=== PATIENT | female | born 1975 ===

== ENCOUNTER 2017-11-01 03:51 | Emergency (ER) | payer OTHER ==
[2017-11-01 04:06] VITALS: BMI 21.4
[2017-11-01 04:12] VITALS: TEMP 98.1
--- NOTE | 2017-11-01 05:05 | ED PDOC ---
HPI: Female Pain <Trav Gan - Last Filed: 11/01/17 07:16> History Per: Patient History/Exam Limitations: no limitations Additional Complaint(s): 42 yo F c/o sudden onset of constant crampy pelvic pain associated with dysuria and urgency. Reports that she just finished her menses 3 days ago, concerned for possible retained tampon. Denies any fever, chills, back pain, radiation, N/ V/D, vaginal d/c or bleeding. Reports having an STD 5 years ago, treated with antibiotics, which she contracted from her previous partner. Reports being sexually active with only 1 partner. Patient also concerned about her ovaries and wants an US to be done. <Caitlyn Francisco PA-C - Last Filed: 11/01/17 21:36> Time Seen by Provider: 11/01/17 04:14 Chief Complaint (Nursing): Female Genitourinary Past Medical History Vital Signs: Last Vital Signs Temp 98.1 F 11/01/17 04:06 Pulse 82 11/01/17 04:06 Resp 18 11/01/17 04:06 BP 116/66 11/01/17 04:06 Pulse Ox 98 11/01/17 05:55 <Trav Gan - Last Filed: 11/01/17 07:16> Vital Signs: Last Vital Signs Temp 98.1 F 11/01/17 04:06 Pulse 82 11/01/17 04:06 Resp 18 11/01/17 04:06 BP 116/66 11/01/17 04:06 Pulse Ox 98 11/01/17 04:06 - Medical History PMH: No Chronic Diseases, Sexually Transmitted Disease (Unknown which) - Family History Family History: States: No Known Family Hx <Caitlyn Francisco PA-C - Last Filed: 11/01/17 21:36> - Home Medications Home Medications: Ambulatory Orders Medication Instructions Recorded Doxycycline Hyclate [Doryx] 100 mg PO BID #28 cap 11/01/17 Ibuprofen [Motrin] 600 mg PO TID 7 Days tab 11/01/17 - Allergies Allergies/Adverse Reactions: Allergies Allergy/AdvReac Type Severity Reaction Status Date / Time No Known Allergies Allergy Verified 11/01/17 04:06 Review of Systems Constitutional: Negative for: Fever, Malaise Cardiovascular: Negative for: Chest Pain, Palpitations Respiratory: Negative for: Cough, Shortness of Breath Gastrointestinal: Negative for: Nausea, Vomiting, Abdominal Pain Genitourinary Female: Negative for: Dysuria, Vaginal Discharge, Vaginal Bleeding Skin: Negative for: Rash <Caitlyn Francisco PA-C - Last Filed: 11/01/17 21:36> Physical Exam - Reviewed Vital Signs Reviewed: Yes - Physical Exam Appears: Positive for: Well, Non-toxic, No Acute Distress Head Exam: Positive for: ATRAUMATIC, NORMAL INSPECTION, NORMOCEPHALIC Skin: Positive for: Normal Color, Warm, DRY Eye Exam: Positive for: EOMI, Normal appearance, PERRL ENT: Positive for: Normal ENT Inspection Neck: Positive for: Normal, Painless ROM Cardiovascular/Chest: Positive for: Regular Rate, Rhythm Respiratory: Positive for: CNT, Normal Breath Sounds Gastrointestinal/Abdominal: Positive for: Normal Exam, Soft, Tenderness (to the pelvic area) Pelvic Exam: Positive for: External Exam Normal, Speculum Exam Normal, Tender W/ Cervical Motion, Tender Uterus, Other (GRAPHICS MANAGER was present during the exam). Negative for: Active Bleeding, Blood, Cervicitis, Discharge, Lesions, Mass, Tender Adnexa Back: Positive for: Normal Inspection Extremity: Positive for: Normal ROM Neurologic/Psych: Positive for: Alert, Oriented <Caitlyn Francisco PA-C - Last Filed: 11/01/17 21:36> - ECG O2 Sat by Pulse Oximetry: 98 <Caitlyn Francisco PA-C - Last Filed: 11/01/17 21:36> Medical Decision Making Medical Decision Making: Impression : r/o ectopic, UTI, PID Plan : - UA - cg - pelvic US - GC cx sent cg (-) UA (-) Patient medicated with rocepin 250 mg IM. US still pending at this time. <Caitlyn Francisco PA-C - Last Filed: 11/01/17 21:36> Disposition <Trav Gan - Last Filed: 11/01/17 07:16> Counseled Patient/Family Regarding: Studies Performed, Diagnosis, Need For Followup, Rx Given - Disposition Disposition Time: 06:00 <Caitlyn Francisco PA-C - Last Filed: 11/01/17 21:36> - Clinical Impression Clinical Impression: PID (acute pelvic inflammatory disease), Fibroid - Disposition Referrals: Dinesh Lynne DO [Staff Provider] - 11/03/17 Condition: STABLE Additional Instructions: Return if not better in 3 days. See the obgyn doctor without fail Friday. Call Dr. Lynne's office [phone] Friday. Get an appointment for Friday. Prescriptions: Doxycycline Hyclate [Doryx] 100 mg PO BID #28 cap Ibuprofen [Motrin] 600 mg PO TID 7 Days tab Instructions: Pelvic Inflammatory Disease, Uterine Fibroids (DC) Forms: [employer] (Spanish), [facility] ED School/Work Excuse - PA / CUSTOM BOOKBINDER / Resident Statement ALE has reviewed & agrees with the documentation as recorded. <Caitlyn Francisco PA-C - Last Filed: 11/01/17 21:36> Progress Note - Review of Symptoms Events since last encounter: Time: 0700 Patient is signed out to Dr. Shaikh's care pending ultrasound and reeval. Scribe Attestation: Documented by Eve Julien, acting as a scribe for Trav Gan MD. Provider Scribe Attestation: All medical record entries made by the Scribe were at my direction and personally dictated by me. I have reviewed the chart and agree that the record accurately reflects my personal performance of the history, physical exam, medical decision making, and the department course for this patient. I have also personally directed, reviewed, and agree with the discharge instructions and disposition. <Trav Gan - Last Filed: 11/01/17 07:16>
[2017-11-01 05:29] LABS: SQUAMOUS EPITHIAL 3 /hpf (0-5); URINE BACTERIA RARE (<OCC); URINE BILIRUBIN NEGATIVE (NEGATIVE); URINE BLOOD NEGATIVE (NEGATIVE); URINE CLARITY SLIGHTY-CLOUDY (Clear); URINE COLOR YELLOW (YELLOW); URINE GLUCOSE (UA) NEG (Normal); URINE LEUKOCYTE ESTERASE NEG Leu/uL (Negative); URINE PROTEIN NEGATIVE (NEGATIVE); URINE UROBILINOGEN 0.2-1.0 mg/dL (0.2-1.0)
[2017-11-01] MEDS ORDERED: cefTRIAXone (Rocephin) 250 mg Inj IM STA (06:12)
[2017-11-01] MEDS ORDERED: cefTRIAXone (Rocephin) 250 mg Inj ONE (06:40)
--- NOTE | 2017-11-01 08:03 | ED PDOC ---
- ECG O2 Sat by Pulse Oximetry: 98 - Progress ED Course And Treament: 700: Took over care from Dr. Gan. Fu on imaging. Pt. with possible PID. Stable. AAOx3. US: large fibroid and irregular ovary left. 832: Spoke with Dr. Lynne. Made aware of presentation, findings, and pain still across pelvis. Pain likely from large fibroid. No cyst in ovary so not likely torsion. Pt. to fu with Dr. Lynne Friday. Pt. aaox3. Tolerated po. Disposition - Clinical Impression Clinical Impression: PID (acute pelvic inflammatory disease), Fibroid - POA Present On Arrival: None - Disposition Referrals: Dinesh Lynne DO [Staff Provider] - 11/03/17 Disposition: Routine/Home Disposition Time: 08:35 Condition: STABLE Additional Instructions: Return if not better in 3 days. See the obgyn doctor without fail Friday. Call Dr. Lynne's office [phone] Friday. Get an appointment for Friday afternoon. Prescriptions: Doxycycline Hyclate [Doryx] 100 mg PO BID #28 cap Instructions: Pelvic Inflammatory Disease, Uterine Fibroids (DC) Forms: [employer] (Armenian), [facility] ED School/Work Excuse
--- NOTE | 2017-11-01 08:21 | US ---
HISTORY: pelvic pain, r/o torsion COMPARISON: None available. TECHNIQUE: Transabdominal and transvaginal FINDINGS: UTERUS: Measures 8.6 x 5.1 x 4.8 cm. Two posterior intramural fibroids, 1.5 x 1.8 x 1.8 cm and 1.5 x 1.6 x 1.8 cm. Probable pedunculated left-sided sub serosal uterine fibroid, 7.0 x 8.0 x 8.9 cm. ENDOMETRIUM: Measures 4 mm in diameter. Unremarkable. CERVIX: No cervical abnormality identified. RIGHT OVARY: Measures 2.9 x 2.8 x 2.0 cm. No solid mass. Normal flow. LEFT OVARY: There is rounded mass in the left adnexal region which may represent the left ovary. This measures 3.3 x 2.6 x 3.1 cm. Blood flow is demonstrated on color Doppler interrogation. The appearance is slightly atypical for an ovary. No other mass is identified likely to represent left ovary. FREE FLUID: Complex fluid in cul-de-sac and about the uterus. This may reflect blood or post infectious or post hemorrhagic debris. OTHER FINDINGS: None. IMPRESSION: Probable large pedunculated left-sided uterine fibroid, 8.9 cm. Slightly atypical appearance of left ovary though with blood flow. Do not suspect ovarian torsion. Complex fluid in the pelvis common nonspecific. Cannot rule out hemorrhage or an infectious process. Several small uterine fibroids are noted.
[2017-11-01 08:45] VITALS: BP 104/53; PULSE 73; RESP 15
[2017-11-01 21:36] VITALS: O2SAT 98
== END 2017-11-01 08:43 | disposition home or self-care (01) ==
LOC: H.ER 03:51
DX: N73.9 Female pelvic inflammatory disease, unspecified (principal); D25.9 Leiomyoma of uterus, unspecified; N73.0 Acute parametritis and pelvic cellulitis
CPT/HCPCS: 76830; 81003; 81025; 87086; 87491; 87591; 96372; 99285; J0696; J1885

== ENCOUNTER 2017-11-02 03:18 | Inpatient (IN) | payer OTHER ==
[2017-11-02 03:18] VITALS: BMI 21.4
[2017-11-02] MEDS ORDERED: Sodium Chloride 0.9% 1,000 ML IV STA ×2 (03:50→07:57)
[2017-11-02 04:37] LABS: BASO # 0.1 K/uL (0.0-0.2); BASO % 0.3 % (0.0-2.0); EOS % 0.2 % (0.0-4.0); HEMOGLOBIN 11.8 g/dL (12.0-16.0); LYMPH # 0.8 K/uL (1.0-4.3); LYMPH % 5.5 % (20.0-40.0); MEAN CELL VOLUME 86.5 fl (81.0-99.0); MEAN CORPUSCULAR HEMOGLOBIN 29.6 pg (27.0-31.0); MEAN CORPUSCULAR HGB CONC 34.2 g/dL (33.0-37.0); MEAN PLATELET VOLUME 8.8 fl (7.2-11.7); MONO # 0.9 K/uL (0.0-0.8); MONO % 6.2 % (0.0-10.0); NEUT % 87.8 % (50.0-75.0); PLATELET COUNT 243 K/uL (130-400); RBC 3.99 Mil/uL (3.80-5.20); RED CELL DISTRIBUTION WIDTH 14.4 % (11.5-14.5); WHITE BLOOD COUNT 14.9 K/uL (4.8-10.8)
[2017-11-02 04:43] LABS: INR 1.2 (0.9-1.2); PARTIAL THROMBOPLASTIN TIME 21.8 Seconds (25.6-37.1); PROTHROMBIN TIME 12.9 Seconds (9.8-13.1)
[2017-11-02 04:44] LABS: ALB/GLOB RATIO 1.1 (1.0-2.1); ALBUMIN 3.6 g/dL (3.5-5.0); ALT/SGPT 24 U/L (9-52); AST/SGOT 22 U/L (14-36); BLOOD UREA NITROGEN 12 mg/dl (7-17); CALCIUM 8.9 mg/dL (8.4-10.2); GFR AFRICAN-AMERICAN > 60; GFR NON-AFRICAN AMERICAN > 60; LIPASE 33 U/L (23-300)
--- NOTE | 2017-11-02 04:47 | ED PDOC ---
HPI: Abdomen Time Seen by Provider: 11/02/17 03:26 Chief Complaint (Nursing): Abdominal Pain History Per: Patient History/Exam Limitations: no limitations Additional Complaint(s): 42 yo F returns to the ER c/o continued and worsening pelvic pain, "making it difficult to walk," which she was evaluated in this ER for yesterday and was found to have a fibroid and Dx with PID. States that the pain is intermittent crampy pelvic pain but is increasing in intensity. Denies any fever, chills, back pain, radiation, N/V/D, urinary symptoms, vaginal d/c or bleeding. States since she was d/c, she has been resting and laying at home. Past Medical History Vital Signs: Last Vital Signs Temp 98.8 F 11/02/17 15:15 Pulse 85 11/02/17 15:15 Resp 16 11/02/17 15:30 BP 103/57 L 11/02/17 15:15 Pulse Ox 99 11/02/17 15:30 - Medical History PMH: No Chronic Diseases, Sexually Transmitted Disease (Unknown which) - Family History Family History: States: No Known Family Hx - Home Medications Home Medications: Ambulatory Orders Medication Instructions Recorded Doxycycline Hyclate [Doryx] 100 mg PO BID #28 cap 11/01/17 Ibuprofen [Motrin] 600 mg PO TID 7 Days tab 11/01/17 - Allergies Allergies/Adverse Reactions: Allergies Allergy/AdvReac Type Severity Reaction Status Date / Time No Known Allergies Allergy Verified 11/01/17 04:06 Review of Systems Constitutional: Negative for: Fever, Malaise Cardiovascular: Negative for: Chest Pain, Palpitations Respiratory: Negative for: Cough, Shortness of Breath Gastrointestinal: Positive for: Other (pelvic pain) Genitourinary Female: Negative for: Dysuria, Vaginal Discharge, Vaginal Bleeding Skin: Negative for: Rash Physical Exam - Physical Exam Appears: Positive for: Well, Non-toxic, No Acute Distress Head Exam: Positive for: ATRAUMATIC, NORMAL INSPECTION, NORMOCEPHALIC Skin: Positive for: Normal Color, Warm, DRY Eye Exam: Positive for: EOMI, Normal appearance, PERRL ENT: Positive for: Normal ENT Inspection, Other (mucus membranes moist) Neck: Positive for: Normal, Painless ROM, Supple Cardiovascular/Chest: Positive for: Regular Rate, Rhythm. Negative for: Murmur Respiratory: Positive for: Normal Breath Sounds. Negative for: Rales, Rhonchi, Wheezing Gastrointestinal/Abdominal: Positive for: Normal Exam, Soft, Tenderness (+ tenderness to the lower abdomen), Guarding. Negative for: Mass, Distended Back: Positive for: Normal Inspection. Negative for: L CVA Tenderness, R CVA Tenderness, Vertebral Tenderness Extremity: Positive for: Normal ROM, Capillary Refill (normal). Negative for: Tenderness, Deformity, Swelling Neurologic/Psych: Positive for: Alert, clerical administrator II-XII, Oriented. Negative for: Motor/Sensory Deficits - Laboratory Results Result Diagrams: 11/02/17 04:32 11/02/17 04:32 - ECG O2 Sat by Pulse Oximetry: 99 Medical Decision Making Medical Decision Making: ER visit from yesterday reviewed : working Dx yesterday was PID, she was given rocephin IM and Rx for doxycycline, uhcg (-), UA (-), US : Complex fluid in cul- de-sac and about the uterus. This may reflect blood or post infectious or post hemorrhagic debris. Probable large pedunculated left-sided uterine fibroid, 8.9 cm. Slightly atypical appearance of left ovary though with blood flow. Do not suspect ovarian torsion. Complex fluid in the pelvis common nonspecific. Cannot rule out hemorrhage or an infectious process. Several small uterine fibroids are noted. Considering patient's symptoms, exam and US results from yesterday, will order labs and CT A/P w/ IV contrast. Labs : wbc [address] Patient returned from CT without any incident, pain is controlled at this time. CT results still pending. Disposition - Clinical Impression Clinical Impression: Pelvic pain, Fibroid - Disposition Disposition Time: 06:00 Condition: FAIR
[2017-11-02] MEDS ORDERED: Iohexol 300 100 ML IJ ONE (04:56)
[2017-11-02] MEDS ORDERED: Sodium Chloride 0.9% 50 ML IV ONE (04:56)
[2017-11-02 05:33] LABS: LYMPHOCYTE 4 % (20-50); MONOCYTE 5 % (0-10); NEUTROPHIL 91 % (42-75); TOTAL CELLS COUNTED 100
[2017-11-02 05:34] LABS: ANISOCYTOSIS SLIGHT; PLATELET ESTIMATE NORMAL (NORMAL)
--- NOTE | 2017-11-02 06:28 | CT ---
EXAM: CT Abdomen and Pelvis With Intravenous Contrast EXAM DATE/TIME: 11/02/2017 4:50 AM CLINICAL HISTORY: 42 years old, female; Pain; Abdominal pain; Other: Pelvic pain; Additional info: Pelvic pain, +free fluid seen in us yesterday TECHNIQUE: Axial computed tomography images of the abdomen and pelvis with intravenous contrast. All CT scans at this facility use one or more dose reduction techniques, viz.: automated exposure control; ma/kV adjustment per patient size (including targeted exams where dose is matched to indication; i.e. head); or iterative reconstruction technique. Coronal and sagittal reformatted images were created and reviewed. CONTRAST: 95 mL of omnipaque 300 administered intravenously. COMPARISON: US - TRANSVAGINAL 2017-11-01 06:18 FINDINGS: The liver, spleen, kidneys and pancreas are normal. The gallbladder is dilated. There is free fluid in Rivero's pouch (and between the liver and right kidney). There is a small amount of free fluid in the left upper quadrant. Complex free fluid is present within the pelvis. There is a large round mass in the left adnexa measuring approximately 6.8 x 7.4 cm in axial dimensions the majority of which is composed of homogeneous complex fluid density. The large round homogeneous structure is surrounded by a partially loculated lower attenuation fluid density that may be either surrounding the mass or a component of the mass. Along the posterior aspect of the mass is a round soft tissue structure that appears contiguous with the uterus likely a pedunculated fibroid. The other possibility would be that it represents left ovarian tissue. The uterus is displaced to the right by the left adnexal mass, a finding that suggests it is of ovarian origin rather than of uterine origin. I believe the right ovary is identified on series 3 image 128 based on what appears to be a partially collapsed cyst. There is slight indistinctness of the urinary bladder wall that could be secondary to surrounding fluid or possibly infectious/inflammatory process. The bowel appears normal. No aortic aneurysm. IMPRESSION: Large complex left adnexal mass with surrounding complex fluid as well as fluid extending into the abdomen. My primary concern is for ovarian torsion. The uterus being displaced to the right suggests the mass is of ovarian origin rather than uterine origin. The substantial amount of surrounding complex free fluid is a finding typically associated with ovarian torsion, ectopic , or rupture of a very large cyst. Given a negative test as well as the intactness of the large complex cystic structure, I continue to be concerned about ovarian torsion. If I had been given the CT in isolation, I would recommend pelvic ultrasound however pelvic ultrasound was performed one day prior and the left ovary was not identified and the large size of the mass limited the ability to evaluate for normal ovarian tissue. I believe repeat pelvic ultrasound will simply redemonstrate what was seen on yesterday's ultrasound as well as redemonstrate the findings seen on CT. Thus, I instead recommend emergent OB consultation to exclude ovarian torsion.
--- NOTE | 2017-11-02 07:18 | ED PDOC ---
- Laboratory Results Result Diagrams: 11/02/17 04:32 11/02/17 04:32 Interpretation Of Abn Labs: 14.9 wbc - ECG O2 Sat by Pulse Oximetry: 97 Pulse Ox Interpretation: Normal - Progress ED Course And Treament: 1912: Stable. Took over care from Dr. Gan. Fu on ultrasound. Pt. had CT with possible torsion. OBGYN aware and wants US. Is aware ultrasound was done yesterday. Pain controlled. AAOx3. Ultrasound team comes at 730am. 1932: Spoke with Dr. Booker and advised to see pt. to further evaluate. Made aware of ultrasound from yesterday and CT from today. Pt. tender across pelvis. nuclear technologist coming at 8am. 800: Dr. Booker at bedside. 835: Dr. Booker will take pt. to the OR as pt. remains tender. US not completed as Dr. Booker wants it held because pt. not tolerating it well. He was in the ultrasound room with the pt. and the tech. - Critical Care Total Time (In Min): 60 Documented Critical Care: Time excludes all time spent performint seperately billable procedures Disposition - Clinical Impression Clinical Impression: Pelvic pain, Fibroid - POA Present On Arrival: None - Disposition Disposition: Admitted as In-Patient Disposition Time: 08:37 Condition: FAIR
--- NOTE | 2017-11-02 09:01 | CP.PCM.CON ---
<Lottie Cole - Last Filed: 11/02/17 09:18> History of Present Illness - History of Present Illness History of Present Illness: CC: Pelvic pain HPI: 42 YO female G0 with hx of unknown STI 4 yrs ago presents to ED for worsening pelvic pain. Pt was seen in the ED yesterday and u/s was done suggestive of fibroid, pt was d/c home after pain was better controlled. Pain came back after pt was discharged from hospital. Pain is rated as a 7/10 now after pain medication, prior pain was rated as a 9/10, cramping in nature. Denies any fever, chills, back pain, radiation, N/V/D, urinary symptoms, vaginal d/c or bleeding. States since she was d/c, she has been resting and laying at home. OBhx: G0 GynHx: STI 4 yrs ago, normal PAP. Hx of L benign breast mass, normal periods Qmonthly PMH: denies SurgH: denies FH: denies SH: denies ETOH, smoking and illicit drug use Allergies: NKDA Meds: denies Review of Systems - Constitutional Constitutional: absent: Chills, Fever, Night Sweats - Cardiovascular Cardiovascular: absent: Chest Pain, Diaphoresis, Dyspnea, Palpitations - Respiratory Respiratory: absent: Cough, Dyspnea - Gastrointestinal Gastrointestinal: Abdominal Pain. absent: Constipation, Diarrhea, Nausea, Vomiting - Genitourinary Genitourinary: absent: Difficulty Urinating, Dysuria - Reproductive: Female Reproductive:Female: Pelvic Pain - Menstruation Menstruation: Dysmenorrhea. absent: Abnormal Vaginal Bleeding - Neurological Neurological: absent: Dizziness, Numbness, Headaches Past Patient History - Past Social History Smoking Status: Never Smoked - GENITOURINARY/GYNECOLOGICAL Hx Sexually Transmitted Disorders: Yes (Unknown which) - PSYCHIATRIC Hx Substance Use: No Meds Allergies/Adverse Reactions: Allergies Allergy/AdvReac Type Severity Reaction Status Date / Time No Known Allergies Allergy Verified 11/01/17 04:06 Physical Exam - Constitutional Appears: In Acute Distress - Head Exam Head Exam: ATRAUMATIC, NORMOCEPHALIC - Eye Exam Eye Exam: EOMI, Normal appearance - ENT Exam ENT Exam: Mucous Membranes Moist - Respiratory Exam Respiratory Exam: Clear to Auscultation Bilateral - Cardiovascular Exam Cardiovascular Exam: REGULAR RHYTHM, +S1, +S2 - GI/Abdominal Exam GI & Abdominal Exam: Soft, Tenderness Additional comments: tenderness to palpation throughout the abdomen, pain worse in the pelvis. Neg rebound. - Extremities Exam Extremities exam: Positive for: full ROM, normal inspection - Neurological Exam Neurological exam: Alert, Oriented x3 - Psychiatric Exam Psychiatric exam: Normal Affect, Normal Mood - Skin Skin Exam: Dry, Intact, Normal Color, Warm Results - Vital Signs Recent Vital Signs: Last Vital Signs Temp 98.2 F 11/02/17 07:20 Pulse 68 11/02/17 08:36 Resp 16 11/02/17 08:36 BP 104/52 L 11/02/17 08:36 Pulse Ox 97 11/02/17 08:40 - Labs Result Diagrams: 11/02/17 04:32 11/02/17 04:32 Labs: Laboratory Results - last 24 hr 11/02/17 11/02/17 11/02/17 04:22 04:32 04:32 WBC 14.9 H RBC 3.99 Hgb 11.8 L Hct 34.6 MCV 86.5 MCH 29.6 MCHC 34.2 RDW 14.4 Plt Count 243 MPV 8.8 Neut % (Auto) 87.8 H Lymph % (Auto) 5.5 L [place] % (Auto) 6.2 Eos % (Auto) 0.2 Baso % (Auto) 0.3 Neut # (Auto) 13.0 H Lymph # (Auto) 0.8 L [place] # (Auto) 0.9 H Eos # (Auto) 0.0 Baso # (Auto) 0.1 Neutrophils % (Manual) 91 H Lymphocytes % (Manual) 4 L Monocytes % (Manual) 5 Platelet Estimate Normal Anisocytosis (manual) Slight PT INR APTT Sodium 139 Potassium 4.0 Chloride 102 Carbon Dioxide 27 Anion Gap 14 BUN 12 Creatinine 0.7 Est GFR ( Amer) > 60 Est GFR (Non-Af Amer) > 60 Random Glucose 126 H Calcium 8.9 Total Bilirubin 0.8 AST 22 ALT 24 Alkaline Phosphatase 41 Total Protein 7.0 Albumin 3.6 Globulin 3.3 Albumin/Globulin Ratio 1.1 Lipase 33 Blood Type A POSITIVE Antibody Screen Negative BBK History Checked No verified bt 11/02/17 04:32 WBC RBC Hgb Hct MCV MCH MCHC RDW Plt Count MPV Neut % (Auto) Lymph % (Auto) [place] % (Auto) Eos % (Auto) Baso % (Auto) Neut # (Auto) Lymph # (Auto) [place] # (Auto) Eos # (Auto) Baso # (Auto) Neutrophils % (Manual) Lymphocytes % (Manual) Monocytes % (Manual) Platelet Estimate Anisocytosis (manual) PT 12.9 INR 1.2 APTT 21.8 L Sodium Potassium Chloride Carbon Dioxide Anion Gap BUN Creatinine Est GFR ( Amer) Est GFR (Non-Af Amer) Random Glucose Calcium Total Bilirubin AST ALT Alkaline Phosphatase Total Protein Albumin Globulin Albumin/Globulin Ratio Lipase Blood Type Antibody Screen BBK History Checked - Imaging and Cardiology CT scan - abdomen Additional comment: CT abdomen/pelvis 11/02: IMPRESSION: Large complex left adnexal mass with surrounding complex fluid as well as fluid extending into the abdomen. My primary concern is for ovarian torsion. The uterus being displaced to the right suggests the mass is of ovarian origin rather than uterine origin. The substantial amount of surrounding complex free fluid is a finding typically associated with ovarian torsion, ectopic , or rupture of a very large cyst. US - abdomen Additional comment: Pelvic u/s 11/01: US: large fibroid and irregular ovary left. Assessment & Plan - Assessment and Plan (Free Text) Assessment: 42 YO G0 Female with hx of STI with pelvic pain, large pedunculated left-sided uterine fibroid noted in u/s and CT with large adnexal mass with complex free fluid. Necrotic fibroid vs ovarian torsion vs PID vs ovarian cyst vs other causes cannot be excluded. Pelvic pain with large adnexal vs uterine mass -CT abdomen/pelvis 11/02: Large complex left adnexal mass with surrounding complex fluid with fluid extending into the abdomen. -US 11/01: large pedunculated left-sided uterine fibroid and irregular ovary left. -afebrile with WBC 14.9 -OR for exlap (scope vs open) -abx pre-op -IVF -pain management <Javier Booker - Last Filed: 11/02/17 09:39> History of Present Illness - History of Present Illness History of Present Illness: Addendum: I saw and examined patient. Patient with acute abdomen. Based on results of CT and ultrasound, patient with either pedunculated fibroid necrosing or ovarian cyst or mass with possible torsion. Discussed results with patient and recommended laparoscopy possible laparotomy and removal of pelvic mass. I discussed with patient and all possibilities including removal of fibroid or possible removal of ovary. I discussed with patient the risks, benefits, alternatives of procedure and all patient questions answered. Patient consented for laparoscopy possible laparotomy and removal of pelvic mass. [facility] Results - Vital Signs Recent Vital Signs: Last Vital Signs Temp 98.2 F 11/02/17 07:20 Pulse 68 11/02/17 08:36 Resp 16 11/02/17 08:36 BP 104/52 L 11/02/17 08:36 Pulse Ox 97 11/02/17 09:30 - Labs Result Diagrams: 11/02/17 04:32 11/02/17 04:32 Labs: Laboratory Results - last 24 hr 11/02/17 11/02/17 11/02/17 04:22 04:32 04:32 WBC 14.9 H RBC 3.99 Hgb 11.8 L Hct 34.6 MCV 86.5 MCH 29.6 MCHC 34.2 RDW 14.4 Plt Count 243 MPV 8.8 Neut % (Auto) 87.8 H Lymph % (Auto) 5.5 L [place] % (Auto) 6.2 Eos % (Auto) 0.2 Baso % (Auto) 0.3 Neut # (Auto) 13.0 H Lymph # (Auto) 0.8 L [place] # (Auto) 0.9 H Eos # (Auto) 0.0 Baso # (Auto) 0.1 Neutrophils % (Manual) 91 H Lymphocytes % (Manual) 4 L Monocytes % (Manual) 5 Platelet Estimate Normal Anisocytosis (manual) Slight PT INR APTT Sodium 139 Potassium 4.0 Chloride 102 Carbon Dioxide 27 Anion Gap 14 BUN 12 Creatinine 0.7 Est GFR ( Amer) > 60 Est GFR (Non-Af Amer) > 60 Random Glucose 126 H Calcium 8.9 Total Bilirubin 0.8 AST 22 ALT 24 Alkaline Phosphatase 41 Total Protein 7.0 Albumin 3.6 Globulin 3.3 Albumin/Globulin Ratio 1.1 Lipase 33 Blood Type A POSITIVE Antibody Screen Negative BBK History Checked No verified bt 11/02/17 04:32 WBC RBC Hgb Hct MCV MCH MCHC RDW Plt Count MPV Neut % (Auto) Lymph % (Auto) [place] % (Auto) Eos % (Auto) Baso % (Auto) Neut # (Auto) Lymph # (Auto) [place] # (Auto) Eos # (Auto) Baso # (Auto) Neutrophils % (Manual) Lymphocytes % (Manual) Monocytes % (Manual) Platelet Estimate Anisocytosis (manual) PT 12.9 INR 1.2 APTT 21.8 L Sodium Potassium Chloride Carbon Dioxide Anion Gap BUN Creatinine Est GFR ( Amer) Est GFR (Non-Af Amer) Random Glucose Calcium Total Bilirubin AST ALT Alkaline Phosphatase Total Protein Albumin Globulin Albumin/Globulin Ratio Lipase Blood Type Antibody Screen BBK History Checked
[2017-11-02] MEDS ORDERED: Bupivacaine HCl 0.5% PF (30 ml) Inj ONE ×2 (10:13→10:26)
[2017-11-02] MEDS ORDERED: Propofol 10 mg/ml Inj (20 ML) ONE (10:31)
[2017-11-02] MEDS ORDERED: Ketamine 50 mg/ml Inj (10 ml) ONE (10:31)
[2017-11-02] MEDS ORDERED: Rocuronium 10 mg/ml (5 ml) ONE (10:31)
[2017-11-02] MEDS ORDERED: Succinylcholine 200 mg/10 ml Inj IV ONE (10:31)
[2017-11-02] MEDS ORDERED: Lidocaine 4% (Laryng-O-Jet) Kit MM ONE (10:32)
[2017-11-02] MEDS ORDERED: Phenylephrine 10 mg/ml Inj ONE (10:35)
[2017-11-02] MEDS ORDERED: Midazolam 2 MG/2 ML VIAL ONE (11:25)
[2017-11-02] MEDS ORDERED: Desflurane Inhalation Anesthetic Liq (240 ml) ONE (11:49)
[2017-11-02] MEDS ORDERED: Lactated Ringer's 1,000 ML IV ONE ×2 (12:30)
[2017-11-02] MEDS ORDERED: Trimethobenzamide 200 mg/2 mL Inj IM ONE (13:23)
[2017-11-02] MEDS: Lactated Ringer's 1,000 ML IV SCH (19:22)
--- NOTE | 2017-11-02 19:56 | PCM.SURG1 ---
Surgeon's Initial Post Op Note - Surgeon's Notes Surgeon: Jhony Continuity Tester: Guera Type of Anesthesia: General Endo Pre-Operative Diagnosis: Acute abdomen, pelvic mass Operative Findings: Approximately 9 cm necrotic uterine fibroid pedunculated extending into the left broad ligament. Normal ovaries bilaterally, normal tubes bilaterally. Mild amount pelvic adhesions. Post-Operative Diagnosis: Same plus necrosing uterine fibroid Operation Performed: Laparoscopy, laparotomy, uterine myomectomy. Specimen/Specimens Removed: Uterine fibroid Estimated Blood Loss: EBL {In ML}: 100 Blood Products Given: N/A Drains Used: No Drains Post-Op Condition: Good Date of Surgery/Procedure: 11/02/17 Time of Surgery/Procedure: 11:30
--- NOTE | 2017-11-03 00:31 | OP ---
PROCEDURE DATE: 11/02/2017 PREOPERATIVE DIAGNOSES: Acute abdomen and pelvic mass. POSTOPERATIVE DIAGNOSES: Acute abdomen, pelvic mass, plus necrosing uterine fibroid. OPERATION PERFORMED: Diagnostic laparoscopy, laparotomy, and uterine myomectomy. SURGEON: Javier Booker MD MANAGER NEW PRODUCT: Dinesh Lynne DO. Dr. Lynne was present from the beginning of the procedure through the end of procedure. Dr. Lynne was integral in exposing the surgical field, controlling intraoperative bleeding, and manual removal of uterine fibroid. TYPE OF ANESTHESIA: General. OPERATIVE FINDINGS: Approximately 9 cm necrotic uterine fibroid pedunculated extending into the left broad ligament. Normal ovaries bilaterally, normal tubes bilaterally. Mild amount of pelvic adhesions. IV FLUID INTAKE: 1100 mL of lactated Ringer's. ESTIMATED BLOOD LOSS: 100 mL. URINE OUTPUT: 150 mL of clear urine. SURGICAL SPECIMEN: Uterine fibroid. DESCRIPTION OF PROCEDURE: The patient was taken to the operating room where general anesthesia was found to be adequate. The patient was prepped and draped in normal sterile fashion in the dorsal lithotomy position. A weighted speculum was placed at the posterior aspect of the vagina. A Sparrow retractor was placed at the anterior surface of the vagina. The cervix was grasped with a single-tooth tenaculum at the anterior surface. The cervix was dilated with Toro dilators to a size of 18-Iraqi. The uterine manipulator was placed through the cervix into the uterine cavity. Tenaculum was also removed under direct visualization. All instruments were removed from the vagina. Attention was then turned to the abdomen. Approximately 1 cm incision was placed at the umbilicus. The Veress needle was placed through the umbilical incision into the abdominal cavity. After proper placement confirmed, the abdomen was insufflated with CO2 gas to a pressure of 15 mmHg. Veress needle was removed from the abdominal cavity. A 10-mm trocar was placed through the abdominal incision into the abdominal cavity. The laparoscope was placed through the umbilical port into the abdominal cavity. The abdomen and pelvis were explored and the above findings noted. At this point the operation due to size of the uterine fibroid, decision was made for laparotomy. The laparoscope was removed from the abdominal cavity. A Pfannenstiel skin incision was made with a scalpel. This was carried down through to the underlying layer of fascia. Midline defect was made in the fascial layer. The fascial incision was then extended bilaterally sharply with curved Tubbs scissors. The fascial incision was then from the underlying rectus muscles both bluntly and sharply with curved Tubbs scissors. The peritoneum was then identified, tented upward with Myah clamps x2, and entered sharply with Metzenbaum scissors. This peritoneal incision was then extended superiorly and inferiorly with good visualization of the urinary bladder. The uterus with uterine fibroid was isolated. The uterine fibroid was grasped with a single tooth tenaculum. The fibroid was removed from the uterus bluntly and sharply with electrocautery. The uterine fibroid was found to have a single pedunculated pedicle. The pedicle was grasped with Myah clamps x2, transected, and suture ligated with 0 Vicryl x2. Redundant peritoneal tissue was sharply removed from the edges of the uterus. Reinspection of the uterine surgical site was found to be hemostatic. The abdomen and pelvis were irrigated with copious amounts of warm normal saline. Reinspection of all surgical sites were found to be hemostatic. All instruments were removed from the patient. The peritoneal layer was closed with a running stitch of 2-0 chromic. The rectus muscles were reapproximated at the midline with a running stitch of 2-0 chromic. The fascial layer was closed with a running stitch of 0 Vicryl. The subcutaneous tissue was closed with a running stitch of 3-0 plain. The skin was closed with a subcutaneous stitch of 3-0 Vicryl. The fascial layer at the umbilical port site was closed with a [id number] suture of 0 Vicryl. Subcutaneous tissue was reapproximated at the umbilical port site with a single stitch of 3-0 plain. The skin at the umbilical port site was closed with Dermabond. The patient tolerated the procedure well. All sponge count, lap count, and needle counts were correct x2. The patient was given 1 g of Ancef just prior to the beginning of the procedure. There were no complications. The patient was taken to the recovery room in awake and in stable condition. Javier Booker MD
[2017-11-03] MEDS: Lactated Ringer's 1,000 ML IV SCH ×2 (03:59→12:25)
[2017-11-03 08:55] LABS: BASO % 0.3 % (0.0-2.0); EOS % 0.4 % (0.0-4.0); HEMOGLOBIN 9.7 g/dL (12.0-16.0); LYMPH # 1.3 K/uL (1.0-4.3); LYMPH % 11.9 % (20.0-40.0); MEAN CELL VOLUME 87.9 fl (81.0-99.0); MEAN CORPUSCULAR HEMOGLOBIN 29.8 pg (27.0-31.0); MEAN CORPUSCULAR HGB CONC 33.9 g/dL (33.0-37.0); MEAN PLATELET VOLUME 9.6 fl (7.2-11.7); MONO # 0.8 K/uL (0.0-0.8); MONO % 7.3 % (0.0-10.0); NEUT % 80.1 % (50.0-75.0); RBC 3.25 Mil/uL (3.80-5.20); RED CELL DISTRIBUTION WIDTH 14.7 % (11.5-14.5); WHITE BLOOD COUNT 11.3 K/uL (4.8-10.8)
--- NOTE | 2017-11-03 09:45 | CP.PCM.PN ---
Subjective - Date & Time of Evaluation Date of Evaluation: 11/03/17 Time of Evaluation: 09:41 - Subjective Subjective: 42 yo s/p laparotomy for degenerating fibroid POD #1, doing well. Denies fever, SOB, no N/V, minimal ambulation, +smallwood draining adequate urine, abdominal pain tolerable with meds, NPO, no vaginal bleeding Objective - Vital Signs/Intake and Output Vital Signs (last 24 hours): Temp Pulse Resp BP Pulse Ox 99.6 F 76 18 105/61 100 11/03/17 08:20 11/03/17 08:20 11/03/17 08:20 11/03/17 08:20 11/03/17 08:20 Intake and Output: 11/03/17 11/03/17 06:59 18:59 Intake Total 600 1900 Output Total 300 500 Balance 300 1400 - Medications Medications: Current Medications Acetaminophen (Ofirmev) 100 mls @ 400 mls/hr IVPB Q6H ABDIAS PRN Reason: Protocol Stop: 11/03/17 10:16 Last Admin: 11/03/17 03:54 Dose: 400 mls/hr Lactated Ringer's (Lactated Ringer's) 1,000 mls @ 100 mls/hr IV .Q10H ABDIAS Last Admin: 11/03/17 03:59 Dose: 100 mls/hr - Labs Labs: 11/03/17 07:55 11/02/17 04:32 PT 12.9 Seconds (9.8-13.1) 11/02/17 04:32 INR 1.2 (0.9-1.2) 11/02/17 04:32 APTT 21.8 Seconds (25.6-37.1) L 11/02/17 04:32 - Head Exam Head Exam: ATRAUMATIC - Eye Exam Pupil Exam: NORMAL ACCOMODATION - Respiratory Exam Respiratory Exam: NORMAL BREATHING PATTERN - Cardiovascular Exam Cardiovascular Exam: REGULAR RHYTHM - GI/Abdominal Exam Additional comments: incision clean/dry/intact +BS, no rebound, abdominal pain tolerable with meds, no gaurding, - Exam External exam: NORMAL EXTERNAL EXAM Bimanual exam: NORMAL BIMANUAL EXAM - Extremities Exam Extremities Exam: Normal Inspection - Skin Skin Exam: Dry, Normal Color Assessment and Plan - Assessment and Plan (Free Text) Plan: A/P POD #1 s/p laparotomy for degenerating fibroid 1. Discontinue WEB DESIGNER DEVELOPER, smallowod 2. Patient to start PO pain medication - Percocet/Motrin/Colace/Mylicon 3. Advance diet as tolerated 4. Encourage patient to ambulate 5. Patient otherwise recovering well, possible discharge tomorrow
[2017-11-03] MEDS: Oxycodone/Acetaminophen 5/325 mg Tab PO PRN ×3 (14:40→23:36)
[2017-11-04] MEDS: Oxycodone/Acetaminophen 5/325 mg Tab PO PRN ×2 (04:51→11:01)
[2017-11-04] MEDS: Simethicone 80 mg Chewtab PO PRN ×2 (05:07→22:09)
--- NOTE | 2017-11-04 11:25 | CARD ---
APPROVED REPORT EKG Measurement Heart [id number] <Conclusion> Normal sinus rhythm Normal ECG
[2017-11-04] MEDS ORDERED: Docusate-Senna 50 mg-8.6 mg Tab PO SCH (22:00)
[2017-11-05] MEDS: Oxycodone/Acetaminophen 5/325 mg Tab PO PRN ×2 (02:53→19:03)
--- NOTE | 2017-11-05 06:57 | CP.PCM.PN ---
Subjective - Date & Time of Evaluation Date of Evaluation: 11/04/17 Time of Evaluation: 22:00 - Subjective Subjective: s: tolerating reg diet w/ +flatus. no bowel movemt. pain well controlled w/ meds. ambulating. Objective - Vital Signs/Intake and Output Vital Signs (last 24 hours): Temp Pulse Resp BP Pulse Ox 97 F L 81 20 104/73 98 11/04/17 20:23 11/04/17 20:23 11/04/17 20:23 11/04/17 20:23 11/04/17 20:23 Intake and Output: 11/04/17 11/05/17 18:59 06:59 Intake Total 500 Output Total 2900 Balance -2400 - Medications Medications: Current Medications Bisacodyl (Dulcolax) 10 mg [place] ONCE PRN PRN Reason: Constipation Ibuprofen (Motrin Tab) 600 mg PO Q6 PRN PRN Reason: Pain, Mild (1-3) Last Admin: 11/04/17 19:34 Dose: 600 mg Oxycodone/Acetaminophen (Percocet 5/325 Mg Tab) 1 tab PO Q4 PRN PRN Reason: Pain, moderate (4-7) Stop: 11/06/17 09:38 Last Admin: 11/05/17 02:53 Dose: 1 tab Senna/Docusate Sodium (Senokot S 50 Mg-8.6 Mg) 2 tab PO HS ABDIAS Last Admin: 11/04/17 22:10 Dose: 2 tab Simethicone (Mylicon Chew Tab) 80 mg PO TID PRN PRN Reason: Flatulence Last Admin: 11/04/17 22:09 Dose: 80 mg - Labs Labs: 11/03/17 07:55 11/02/17 04:32 PT 12.9 Seconds (9.8-13.1) 11/02/17 04:32 INR 1.2 (0.9-1.2) 11/02/17 04:32 APTT 21.8 Seconds (25.6-37.1) L 11/02/17 04:32 - Constitutional Appears: Well, No Acute Distress - Head Exam Head Exam: ATRAUMATIC, NORMOCEPHALIC - Respiratory Exam Respiratory Exam: NORMAL BREATHING PATTERN - GI/Abdominal Exam GI & Abdominal Exam: Soft, Tenderness (along pfannensteil incision c/w postop course), Normal Bowel Sounds. absent: Distended - Extremities Exam Extremities Exam: Normal Inspection - Neurological Exam Neurological Exam: Alert, Oriented x3 - Psychiatric Exam Psychiatric exam: Normal Affect, Normal Mood Assessment and Plan - Assessment and Plan (Free Text) Assessment: I: POD2 Laparatomy w/ Myomectomy P: Continue ambulation Rx senokot s. pt advised of prn order for dulcolax Incentive spirometry Rx Fe w/ resumption of bowel movement
[2017-11-05 10:36] VITALS: O2SAT 99
--- NOTE | 2017-11-05 15:20 | CP.SDSHP ---
Same Day Surgery H & P - Allergies Allergies: Allergies No Known Allergies Allergy (Verified 11/01/17 04:06) - Physical Exam Vital Signs: Vital Signs 11/05/17 09:00 Temperature 98.3 F Pulse Rate 69 Respiratory 18 Rate Blood Pressure 119/70 O2 Sat by Pulse 99 Oximetry Short Stay Discharge - Short Stay Discharge Admitting Diagnosis/Reason for Visit: PELIC PAIN,FIBROID,R/O TORSION Instructions: How to Use an Incentive Spirometer, Myomectomy, Open Surgery Additional Instructions (Diet, Activity): s/p laparotomy resection of fibroid f/u one week NPV motirn and percocet as needed
[2017-11-05] MEDS: Simethicone 80 mg Chewtab PO PRN (19:03)
[2017-11-05 23:41] VITALS: BP 122/73; PULSE 72; RESP 20; TEMP 97.3
== END 2017-11-05 21:45 | disposition home or self-care (01) | DRG 743 ==
LOC: H.ER 03:18 → H.ERHOLD 08:34 → H.PEDS 15:27
PROVIDERS: ADMIT Obstetrics & Gynecology; ATTEND Obstetrics & Gynecology
PROC: 0UB90ZZ Excision of Uterus, Open Approach (ICD-10-PCS; principal; 2017-11-02 09:30)
DX: D25.9 Leiomyoma of uterus, unspecified (principal); Z53.31 Laparoscopic surgical procedure converted to open procedure